=== PATIENT | female | born 1980 | race Asian ===

== ENCOUNTER 2016-12-11 02:05 | Inpatient (IN) | payer SELFPAY ==
[~2016-12-11] VITALS: Ht 155 cm; Wt 64.4 kg
[2016-12-11] MEDS ORDERED: OXYTOCIN 10 UNITS/ML VIAL IM ONE (02:40)
[2016-12-11] MEDS ORDERED: NALBUPHINE HYDROCHLORIDE 10 MG/ML VIAL IVP PRN (02:40)
[2016-12-11] MEDS ORDERED: PROMETHAZINE 25 MG/ML VIAL IVP PRN (02:40)
[2016-12-11] MEDS ORDERED: OXYTOCIN 20 UNITS/LR PREMIX 1,000 ML IV SCH ×2 (02:40→20:50)
[2016-12-11 03:18] LABS: BASOPHILS # (AUTO) 0.1 K/uL (0.00-0.22); EOSINOPHILS # (AUTO) 0.1 K/uL (0-0.4); EOSINOPHILS % (AUTO) 1.6 % (0.0-4.0); HEMATOCRIT 35.3 % (36-48); HEMOGLOBIN 11.7 g/dL (12.0-16.0); LYMPHOCYTES # (AUTO) 1.6 K/uL (2.5-16.5); LYMPHOCYTES % (AUTO) 25.5 % (20.5-51.1); MEAN CORPUSCULAR HEMOGLOBIN 28 pg (27-31); MEAN CORPUSCULAR HGB CONC 33 g/dL (33-37); MEAN CORPUSCULAR VOLUME 86 fL (80-94); MONOCYTES # (AUTO) 0.3 K/uL (0.8-1.0); MONOCYTES % (AUTO) 4.5 % (1.7-9.3); NEUTROPHILS % (AUTO) 67.4 % (42.2-75.2); PLATELET COUNT (AUTO) 235 K/uL (140-450); RED BLOOD CELL COUNT(AUTO) 4.12 MIL/uL (4.20-5.40); RED CELL DISTRIBUTION WIDTH 16.9 % (11.6-13.7); WHITE BLOOD COUNT (AUTO) 6.1 K/uL (4.8-10.8)
[2016-12-11 03:19] LABS: APPEARANCE,URINE CLEAR (CLEAR); BILIRUBIN,URINE NEGATIVE (NEGATIVE); BLOOD, URINE 1+ (NEGATIVE); COLOR,URINE YELLOW (YELLOW); LEUKOCYTE ESTERASE ,URINE NEGATIVE (NEGATIVE); NITRITE, URINE NEGATIVE (NEGATIVE); PH,URINE 5.5 (5.0-9.0); PROTEIN,URINE NEGATIVE (NEGATIVE); UGLUCOSE NEGATIVE (NEGATIVE); UROBILINOGEN,URINE 0.2 EU/dL (0.2 - 1)
[2016-12-11] MEDS ORDERED: OXYTOCIN 20 UNITS/LR PREMIX 1,000 ML IV ONE ×3 (03:20→21:56)
[2016-12-11] MEDS: LACTATED RINGERS 1,000 ML IV SCH ×3 (03:20→18:31)
[2016-12-11 03:29] LABS: BACTERIA,URINE OCCASSIONAL /HPF (None Seen); RBC,URINE 0-5 (RARE) /HPF (0-5); SQUAMOUS EPITHELIAL CELL,UR 4-10 (MOD) /LPF (0-3 (FEW)); WBC,URINE 0-5 (RARE) /HPF (0-5)
[2016-12-11 03:41] LABS: HIV RAPID SCREEN NON-REACTIVE (NON REACTIV)
[2016-12-11] MEDS ORDERED: PREN-546 PO (04:22)
[2016-12-11] MEDS ORDERED: FERR-193 PO (04:22)
[2016-12-11 04:28] VITALS: BP 145/63
--- NOTE | 2016-12-11 07:36 | NUR ---
PATIENT HAS BEEN SCREENED AND CATEGORIZED LOW RISK. PATIENT WILL BE SEEN WITHIN 7 DAYS OF ADMISSION. 12/18/[address]
[2016-12-11] MEDS ORDERED: AMPICILLIN 2,000 MG VIAL ONE (08:14)
[2016-12-11] MEDS ORDERED: AMPICILLIN 2,000 MG in NACL 0.9% 100 ML IV SCH ×2 (08:15→09:05)
[2016-12-11] MEDS ORDERED: ROPIVACAINE 0.2%/NS PREMIX 250 ML EPI ONE (08:29)
[2016-12-11] MEDS ORDERED: AMPICILLIN 1,000 MG VIAL ONE ×2 (12:07→16:17)
[2016-12-11] MEDS: AMPICILLIN 1,000 MG in NACL 0.9% 50 ML IV SCH ×2 (12:08→16:14)
[2016-12-11 12:19] LABS: RAPID PLASMA REAGIN NON-REACTIVE (Non Reactiv)
[2016-12-11] MEDS ORDERED: ceFAZolin 1,000 MG VIAL ONE (20:02)
[2016-12-11] MEDS ORDERED: ceFAZolin 1,000 MG VIAL IVP ONE (20:10)
[2016-12-11] MEDS ORDERED: KETOROLAC 30 MG/ML VIAL ONE (20:24)
[2016-12-11] MEDS ORDERED: OXYTOCIN 10 UNITS/ML VIAL ONE ×2 (20:24→20:37)
[2016-12-11] MEDS ORDERED: ONDANSETRON 4 MG/2 ML VIAL ONE (20:24)
[2016-12-11] MEDS ORDERED: LIDOCAINE 2% 1000 MG/50 ML VIAL INJ ONE (20:24)
[2016-12-11] MEDS ORDERED: CITRIC ACID/SODIUM CITRATE 30 ML UDC PO SCH (20:25)
[2016-12-11] MEDS ORDERED: CITRIC ACID/SODIUM CITRATE 30 ML UDC ONE (20:31)
[2016-12-11] MEDS ORDERED: TRIAMCINOLONE 10 MG/ML 5ML VIAL ONE (20:37)
[2016-12-11] MEDS ORDERED: diphenhydrAMINE 50 MG/ML VIAL ONE (20:39)
[2016-12-11] MEDS ORDERED: MORPHINE PRES FREE 10 MG/10 ML AMP IV ONE (20:43)
[2016-12-11] MEDS ORDERED: NALOXONE 0.4 MG/ML VIAL IVP PRN ×2 (20:50)
[2016-12-11] MEDS ORDERED: diphenhydrAMINE 50 MG/ML VIAL IVP PRN (20:50)
[2016-12-11] MEDS ORDERED: KETOROLAC 30 MG/ML VIAL IVP PRN (20:50)
[2016-12-11] MEDS ORDERED: SIMETHICONE 80 MG TAB.CHEW PO PRN (21:35)
[2016-12-11] MEDS ORDERED: HYDROcodone/APAP 5/325 MG 1 TAB TAB PO PRN (21:35)
[2016-12-11] MEDS ORDERED: IBUPROFEN 800 MG TAB PO PRN (21:35)
[2016-12-11] MEDS ORDERED: MEASLES, MUMPS, AND RUBELLA 1 VIAL SQVAC PRN (21:35)
[2016-12-11] MEDS ORDERED: TEMAZEPAM 15 MG CAP PO PRN (21:35)
[2016-12-11] MEDS ORDERED: oxyCODONE/APAP 5/325 MG 1 TAB TAB PO PRN (21:35)
[2016-12-11] MEDS: OXYTOCIN 20 UNITS/LR PREMIX 1,000 ML IV SCH (22:04)
--- NOTE | 2016-12-11 23:30 | NUR ---
INCENTIVE SPIROMETER NOT DONE. PATIENT SLEEPING.
[2016-12-12] MEDS: OXYTOCIN 20 UNITS/LR PREMIX 1,000 ML IV SCH ×2 (05:56→14:11)
[2016-12-12 07:16] LABS: HEMATOCRIT 31.1 % (36-48); HEMOGLOBIN 10.2 g/dL (12.0-16.0); MEAN CORPUSCULAR HEMOGLOBIN 28 pg (27-31); MEAN CORPUSCULAR HGB CONC 33 g/dL (33-37); MEAN CORPUSCULAR VOLUME 86 fL (80-94); PLATELET COUNT (AUTO) 210 K/uL (140-450); RED BLOOD CELL COUNT(AUTO) 3.61 MIL/uL (4.20-5.40); RED CELL DISTRIBUTION WIDTH 16.9 % (11.6-13.7); WHITE BLOOD COUNT (AUTO) 11.9 K/uL (4.8-10.8)
[2016-12-12 08:19] LABS: BAND % (MANUAL) 11 % (0-8); BASOPHILS % (MANUAL) 0 % (0-2); EOSINOPHILS % (MANUAL) 0 % (0-4); LYMPHOCYTES % (MANUAL) 5 % (20-46); MONOCYTES % (MANUAL) 2 % (5-12); NEUTROPHILS % (MANUAL) 82 (43-65)
[2016-12-12 08:20] LABS: PLATELET ESTIMATE ADEQUATE
[2016-12-12] MEDS ORDERED: SODIUM PHOSPHATE 118 ML ENEM RC SCH (09:00)
[2016-12-12] MEDS: DOCUSATE SOD/SENNA 50/8.6 MG 1 TAB PO SCH (21:25)
[2016-12-13] MEDS: DOCUSATE SOD/SENNA 50/8.6 MG 1 TAB PO SCH (20:11)
== END 2016-12-14 13:15 | disposition home or self-care (01) | DRG 766 ==
LOC: MLD 02:05 → MFCC 21:40
PROVIDERS: ADMIT Obstetrics & Gynecology; ATTEND Obstetrics & Gynecology
PROC: 10D00Z1 Extraction of Products of Conception, Low, Open Approach (ICD-10-PCS; principal; 2016-12-11 20:30)
PROC: 3E0234Z Introduction of Serum, Toxoid and Vaccine into Muscle, Percutaneous Approach (ICD-10-PCS; 2016-12-13)
DX: O62.2 Other uterine inertia (principal); O69.81X0 Labor and delivery complicated by cord around neck, without compression, not applicable or unspecified; O64.0XX0 Obstructed labor due to incomplete rotation of fetal head, not applicable or unspecified; O89.4 Spinal and epidural anesthesia-induced headache during the puerperium; Z3A.39 39 weeks gestation of pregnancy; Z37.0 Single live birth; Z23 Encounter for immunization
CPT/HCPCS: 36415; 51702; 81001; 85025; 86592; 86886; 86900; 86901; 90707; 90715; J0290; J0690; J1200; J1885; J2001; J2270; J2405; J2590; J2795; J3301; J7060; J7120